=== PATIENT | female | born 2000 | race Caucasian/White ===

== ENCOUNTER 2021-06-11 18:08 | Emergency (ER) | payer OTHER ==
[2021-06-11] MEDS ORDERED: MEDROL 4MG DOSEP4 MG PO (21:44)
[2021-06-11] MEDS ORDERED: CYCLOBENZAPRINE10 MG PO (21:44)
== END 2021-06-11 21:50 | disposition home or self-care (01) ==
LOC: FER 18:08
DX: S40.011A Contusion of right shoulder, initial encounter (principal); R51.9 Headache, unspecified; V48.6XXA Car passenger injured in noncollision transport accident in traffic accident, initial encounter; Y92.410 Unspecified street and highway as the place of occurrence of the external cause
CPT/HCPCS: 70450; 71045; 72125; 73030; 73060